=== PATIENT | female | born 1980 | race Asian ===

== ENCOUNTER 2022-04-28 19:43 | Emergency (ER) | payer OTHER ==
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
[2022-04-28 20:42] VITALS: BP 113/72
--- NOTE | 2022-04-28 22:03 | CT Report ---
PROCEDURE: CERVICAL SPINE WO INDICATIONS: neck strain TECHNIQUE: Noncontrast 3 mm thick sections acquired from the skull base to the T4 level. Sagittal and coronal r eformats were then constructed. For radiation dose reduction, the following was used: automated exp osure control, adjustment of mA and/or kV according to patient size. COMPARISON: None. FINDINGS: Image quality: Excellent. Bones: No fractures or subluxation. There is a limbus vertebra at C4-C5. Visualized superior ribs ar e intact. Soft tissues: Prevertebral soft tissues are normal in thickness. No paravertebral hematomas. No ap ical pneumothoraces. IMPRESSION: 1. No fracture or subluxation. Reviewed by: Antony Vanessa MD on 04/28/2022 10:01 PM PDT Approved by: Antony Vanessa MD on 04/28/2022 10:01 PM PDT Station ID: [id number]
== END 2022-04-28 22:00 | disposition home or self-care (01) ==
LOC: ED 19:43
DX: S16.1XXA Strain of muscle, fascia and tendon at neck level, initial encounter (principal); V43.52XA Car driver injured in collision with other type car in traffic accident, initial encounter
CPT/HCPCS: 99282; 99284

== ENCOUNTER 2024-04-28 17:10 | Emergency (ER) | payer OTHER ==
[2024-04-28] MEDS: SODIUM CHLORIDE 0.9% 1,000 ML IV STA (20:59)
[2024-04-28] MEDS: KETOROLAC 15 MG/ML VIAL IVP STA (20:59)
[2024-04-28] MEDS: diphenhydrAMINE INJ 50 MG/ML VIAL IVP STA (20:59)
[2024-04-28] MEDS: METOCLOPRAMIDE 10 MG/2 ML VIAL IVP STA (20:59)
--- NOTE | 2024-04-28 21:09 | ED Physician Documentation ---
History of Present Illness - Stated complaint Stated Complaint: MARSHALL - Chief complaint Chief Complaint: Heent - History obtained from History obtained from: Patient - Additonal information Additional information: 44yF p/w headache X 4 days in R posterior skull radiating to anterior neck, without n/v/photophobia, vision changes, neck pain. denies fever.08/25 . PD PAST MEDICAL HISTORY - Past Medical History Past Medical History: Yes Cardiovascular: None Respiratory: None Neuro: None Endocrine/Autoimmune: None GI: None SURVEY CREW CHIEF: None : None HEENT: None Psych: None Musculoskeletal: None Derm: None - Past Surgical History Past Surgical History: Yes /SURVEY CREW CHIEF: section - Present Medications Home Medications: Ambulatory Orders Medication Instructions Recorded Confirmed No Known Home Medications 04/28/22 04/28/24 - Allergies Allergies/Adverse Reactions: Allergies Allergy/AdvReac Type Severity Reaction Status Date / Time naproxen [From Aleve] AdvReac Unknown Verified 04/28/24 18:01 - Social History Does the pt smoke?: No Smoking Status: Never smoker Does the pt drink ETOH?: No Does the pt have substance abuse?: No - Immunizations Immunizations are current?: Yes - POLST Patient has POLST: No PD ED PE NORMAL - Vitals Vital signs reviewed: Yes - General General: Alert and oriented X 3, No acute distress, Well developed/nourished - HEENT HEENT: Atraumatic, PERRL, EOMI - Neck Neck: Supple, no meningeal sign - Derm Derm: Normal color, Warm and dry - Neuro Neuro: Alert and oriented X 3, 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 Feeling better s/p migraine cocktail. return precuations given. plan to f/u pcp. Departure - Departure Clinical Impression: Headache Condition: Stable Instructions: ED Headache Migraine Comments: You were seen in the emergency department for headache. Please follow-up with your primary care provider and return to the emergency department if you have any new or worsening symptoms or other concerns.
[2024-04-28] MEDS: ACETAMINOPHEN 325 MG TABLET PO STA (21:23)
[2024-04-28 22:50] VITALS: BP 126/86; O2SAT 99
== END 2024-04-28 22:41 | disposition home or self-care (01) ==
LOC: ED 17:10
DX: R51.9 Headache, unspecified (principal)
CPT/HCPCS: 96374; 99283; A9270; J1200; J2765